=== PATIENT | male | born 1940 | race Caucasian/White ===

== ENCOUNTER → 2018-12-24 08:23 | Outpatient (CLI) | payer MEDICARE, OTHER, SELFPAY ==
[2018-12-24 09:56] LABS: PSA,Total- Diagnostic 9.33 ng/mL (0.0-4.0)
== END ==
PROVIDERS: Family Provider Family Medicine; PCP Family Medicine; Referring Provider Nurse Practitioner Adult Health; Visit Provider Nurse Practitioner Adult Health
DX: R97.20 Elevated prostate specific antigen [PSA] (principal)
CPT/HCPCS: 36415; 84153

== ENCOUNTER → 2019-01-15 08:00 | Outpatient (CLI) | payer MEDICARE, OTHER, SELFPAY ==
--- NOTE | 2019-01-15 | IMM_PTH ---
PATIENT: MIRIAN CARCAMO LOC: [facility] U#:[id number] AGE/SX: 84/M ROOM: RE01/15/[address]: Dr. Anthony Cagle MD : 1940 BED: DIS: SPEC #: [id number] RECD: 01/17/19 10:28 STATUS: BERNARDO REQ #: [id number] JAY: 01/15/19 00:[address]: Anthony Cagle DEPT: IMMUNOHISTOCHEMISTRY RECD BY: Rafael Álvarez ENTERED: 01/17/19 10:30 SP TYPE: IMMUNO OTHR DR: Dr. Low Washington MD Tissues: PROSTATE BIOPSY Procedures: 34BE12 (add) P40 (add) 34BE12 (initial) PHYSICIAN & INSTITUTION [place] [id number] SPECIMEN INFORMATION: Tissue Source: A. Right apex prostate, biopsy, C. Right base prostate, biopsy, D. Left apex prostate, biopsy Clinical Info: R97.20 Specimen Number: [id number] A, C, and D CPT code: 83569, 82244 x5 METHODOLOGY: Deparaffinized sections of prefer/formalin-fixed tissue or PAP/DQ stained slides are incubated with monoclonal/polyclonal antibodies/oligonucleotide probes. Localization is made via biotin free immunoperoxidase method. Appropriate controls are performed and reacted as expected. Results on target cell population are indicated in the following table: RESULTS: ANTIBODY / CLONE RESULT Block A 34BE12 (34BE12) negative P40 (BC28) negative Block C 34BE12 (34BE12) negative P40 (BC28) negative Block D 34BE12 (34BE12) negative P40 (BC28) negative These tests were developed and their performance characteristics determined by [facility]. They may not have been cleared or approved by the U.S. Food and Drug Administration. The FDA has determined that such clearance or approval is not necessary. INTERPRETATION: A. Right prostate apex, needle core biopsy: Adenocarcinoma C. Right prostate base, needle core biopsy: Adenocarcinoma D. Left prostate apex, needle core biopsy: Consistent with atypical small acinar proliferation AM:jose 01/17/19
--- NOTE | 2019-01-15 08:00 | PROSBIL_PTH ---
PATIENT: MIRIAN CARCAMO LOC: [facility] U#:[id number] AGE/SX: 84/M ROOM: RE01/15/[address]: Dr. Anthony Cagle MD : 1940 BED: DIS: SPEC #: [id number] RECD: 01/15/19 17:00 STATUS: BERNARDO LOWELL #: [id number] JAY: 01/15/19 08:[address]: Anthony Cagle DEPT: SURGICAL PATHOLOGY RECD BY: Rafael Álvarez ENTERED: 01/16/19 09:36 SP TYPE: PROST BX BRIAN DR: Dr. Low Washington MD Tissues: A - PROSTATE RIGHT B - PROSTATE RIGHT C - PROSTATE RIGHT D - PROSTATE LEFT E - PROSTATE LEFT F - PROSTATE LEFT Procedures: PROSTATE BX HEADER OPERATION: Prostate biopsy PRE-OP DIAGNOSIS: R97.20 TISSUE SUBMITTED: A-Right apex, B-Right mid, C-Right base, D-Left apex, E-Left mid, F-Left base MICROSCOPIC DIAGNOSIS A. Right prostate, apex, core biopsy: Adenocarcinoma: Ghassan grade: 3+3 (6) Cores involved: 1-2 Tissue involved: less than 1% Greatest tumor length: less than 1 mm B. Right prostate, mid, core biopsy: Mild chronic inflammation and glandular atrophy. C. Right prostate, base, core biopsy: Adenocarcinoma: [place] grade: 3+3 (6) Cores involved: 2 out of 2 Tissue involved: 35% Greatest tumor length: 3 mm Perineural invasion - present, focal D. Left prostate, apex, core biopsy: Atypical small acinar proliferation suspicious for focus of adenocarcinoma. Glandular atrophy and mild chronic inflammation. E. Left prostate, mid, core biopsy: Glandular atrophy and mild chronic inflammation. F. Left prostate, base, core biopsy: Glandular atrophy and mild chronic inflammation. AM:breezy 01/17/19 COMMENT A, C, D: Immunohistochemistry ([id number]) supports the above diagnosis. Case has been reviewed in consultation with Dr. Blancas who concurs with the above diagnosis. IDC:SJ MICROSCOPIC DESCRIPTION Slides are reviewed. GROSS DESCRIPTION A - Received is one container designated prostate, right apex. The specimen consists of two elongated fragments of light ritter-white soft tissue each measuring 0.7 and 1.5 cm in length and 0.1 cm in diameter. The specimen is totally submitted in one cassette. B - Received is one container designated prostate, right mid. The specimen consists of two elongated fragments of light ritter-white soft tissue each measuring 1 and 1.5 cm in length and 0.1 cm in diameter. The specimen is totally submitted in one cassette. C - Received is one container designated prostate, right base. The specimen consists of two elongated fragments of light ritter-white soft tissue each measuring 1.2 cm in length and 0.1 cm in diameter. The specimen is totally submitted in one cassette. D - Received is one container designated prostate, left apex. The specimen consists of two elongated fragments of light ritter-white soft tissue each measuring 1 and 1.8 cm in length and 0.1 cm in diameter. The specimen is totally submitted in one cassette. E - Received is one container designated prostate, left mid. The specimen consists of three elongated fragments of light ritter-white soft tissue each measuring 0.5 to 1.5 cm in length and 0.1 cm in diameter. The specimen is totally submitted in one cassette. F - Received is one container designated prostate, left base. The specimen consists of two elongated fragments of light ritter-white soft tissue each measuring 0.6 and 1 cm in length and 0.1 cm in diameter. The specimen is totally submitted in one cassette. / RAJ:breezy 01/16/19 TC: 0 CPT: G0146 ADDENDUM ADDENDUM ADDENDUM ADDENDUM ADDENDUM ADDENDUM ADDENDUM ADDENDUM 02/12/2019 09:46 ADDENDUM 02/12/2019 09:46 ADDENDUM 02/12/2019 09:46 ADDENDUM 02/12/2019 09:46 ADDENDUM 02/12/2019 09:46 ADDENDUM 04/22/2019 09:50 An order for Oncotype testing was received from Dr. Cagle. This necessitated case review, block and slide selection by pathologist at [facility]. Genomic Prostate Score = 32 Results of the complete Oncotype testing ([facility] report) are viewable in EMR under: Reports - Pathology - Lab Pathology Report, Scanned. This addendum is added to incorporate an outside pathology consultation report. The case was examined at [facility] (#[id number]) and the following diagnosis was rendered. A. Right prostate, apex, core biopsy: Prostatic adenocarcinoma, Ghassan score 3+3=6, involving 1 of 2 cores and less than 1% of the tissue. B. Right prostate, mid, core biopsy: Prostate tissue with no significant pathologic change. C. Right prostate, base, core biopsy: Prostatic adenocarcinoma, [place] score 3+3=6, involving 2 of 2 cores and 20% of the tissue. Perineural invasion. D. Left prostate, apex, core biopsy: Prostatic adenocarcinoma, Ghassan score 3+3=6, involving 1 of 1 core and 1% of the tissue. Perineural invasion. E. Left prostate, mid, core biopsy: Prostate tissue with no significant pathologic change. F. Left prostate, base, core biopsy: Prostate tissue with no significant pathologic change. Please see complete above mentioned consultation report in EMR
== END ==
PROVIDERS: Family Provider Family Medicine; PCP Family Medicine; Referring Provider Urology; Visit Provider Urology
DX: C61 Malignant neoplasm of prostate (principal); N41.1 Chronic prostatitis; N42.89 Other specified disorders of prostate; R97.20 Elevated prostate specific antigen [PSA]
CPT/HCPCS: 88305; 88341; 88342; G0416

== ENCOUNTER → 2019-03-07 10:28 | Outpatient (CLI) | payer MEDICARE, OTHER, SELFPAY | PROVIDERS: Family Provider Family Medicine; PCP Family Medicine; Referring Provider Urology; Visit Provider Urology | DX: C61 Malignant neoplasm of prostate (principal) | CPT/HCPCS: 36415; 84153 ==

== ENCOUNTER → 2019-10-07 12:35 | Outpatient (CLI) | payer MEDICARE, OTHER, SELFPAY ==
[2019-03-12 11:18] VITALS: BMI 27.7
[2019-10-07 13:38] LABS: PSA,Total- Diagnostic 8.84 ng/mL (0.0-4.0)
== END ==
PROVIDERS: PCP Family Medicine
DX: C61 Malignant neoplasm of prostate (principal)
CPT/HCPCS: 36415; 84153

== ENCOUNTER → 2020-01-29 08:54 | Outpatient (CLI) | payer MEDICARE, OTHER, SELFPAY ==
[2019-03-12 11:18] VITALS: BMI 27.7
[2020-01-29 10:04] LABS: PSA,Total- Diagnostic 8.56 ng/mL (0.0-4.0)
== END ==
PROVIDERS: PCP Family Medicine; Referring Provider Student in an Organized Health Care Education/Training Program; Visit Provider Student in an Organized Health Care Education/Training Program
DX: C61 Malignant neoplasm of prostate (principal)
CPT/HCPCS: 36415; 84153

== ENCOUNTER → 2020-09-14 11:05 | Outpatient (CLI) | payer MEDICARE, OTHER, SELFPAY ==
[2019-03-12 11:18] VITALS: BMI 27.7
[2020-09-14 12:23] LABS: AST(SGOT) 19 U/L (15-37); Alanine Aminotransfer ALT/SGPT 22 U/L (16-61); Albumin, Serum 3.9 g/dL (3.2-5.0); Alkaline Phosphatase 72 U/L (45-117); Bilirubin, Direct 0.24 mg/dL (0.00-0.30); Globulin 3.4 g/dL (2.2-4.2); PSA,Total- Diagnostic 9.89 ng/mL (0.0-4.0); Protein, Total 7.3 g/dL (6.4-8.2)
== END ==
PROVIDERS: PCP Family Medicine
DX: C61 Malignant neoplasm of prostate (principal); E80.6 Other disorders of bilirubin metabolism
CPT/HCPCS: 36415; 80076; 84153

== ENCOUNTER → 2021-02-15 08:32 | Outpatient (CLI) | payer MEDICARE, OTHER, SELFPAY ==
[2019-03-12 11:18] VITALS: BMI 27.7
== END ==
PROVIDERS: PCP Family Medicine
DX: C61 Malignant neoplasm of prostate (principal)
CPT/HCPCS: 36415; 84153

== ENCOUNTER → 2021-09-28 | Outpatient (CLI) | payer MEDICARE, OTHER, SELFPAY ==
[2019-03-12 11:18] VITALS: BMI 27.7
== END | disposition home or self-care (01) ==
LOC: LAB 13:42
PROVIDERS: PCP Family Medicine; Referring Provider Urology; Visit Provider Urology
DX: C61 Malignant neoplasm of prostate (principal)
CPT/HCPCS: 36415; 84153

== ENCOUNTER → 2021-10-07 | Outpatient (CLI) | payer MEDICARE, OTHER, SELFPAY ==
[2019-03-12 11:18] VITALS: BMI 27.7
--- NOTE | 2021-10-07 | PROSBIL_PTH ---
PATIENT: MIRIAN CARCAMO LOC: [facility] U#:[id number] AGE/SX: 80/M ROOM: RE10/07/[address]: Dr. Anthony Cagle MD : 1940 BED: DIS: 10/07/2021 SPEC #: [id number] RECD: 10/07/21 16:28 STATUS: BERNARDO ETIENNE #: [id number] JAY: 10/07/21 00:[address]: Anthony Cagle DEPT: SURGICAL PATHOLOGY RECD BY: Rafael Álvarez ENTERED: 10/08/21 08:54 SP TYPE: PROST BX BRIAN DR: Dr. Alejandro Mullen MD Tissues: A - PROSTATE RIGHT B - PROSTATE RIGHT C - PROSTATE RIGHT D - PROSTATE LEFT E - PROSTATE LEFT F - PROSTATE LEFT Procedures: PROSTATE BX HEADER OPERATION: Prostate biopsy PRE-OP DIAGNOSIS: Elevated PSA TISSUE SUBMITTED: A - Right apex, B - Right mid, C - Right base, D - Left apex, E - Left mid, F - Left base MICROSCOPIC DIAGNOSIS A. Right prostate, apex, core biopsy: Prostatic tissue, negative for malignancy. B. Right prostate, mid, core biopsy: Prostatic tissue, negative for malignancy. C. Right prostate, base, core biopsy: Prostatic adenocarcinoma. [place] grade: 3+3=6 Number of cores involved: 1/1 Proportion of tissue involved: ~40% Perineural invasion: Not identified. Greatest tumor length: 0.4 cm D. Left prostate, apex, core biopsy: Prostatic tissue, negative for malignancy. E. Left prostate, mid, core biopsy: Prostatic adenocarcinoma. Ghsasan grade: 3+3=6 Number of cores involved: 1/1 Proportion of tissue involved: ~15% Perineural invasion: Not identified. Greatest tumor length: 2 mm See comment. F. Left prostate, base, core biopsy: Prostatic tissue, negative for malignancy. SJ:kate 10/11/2021 COMMENT E. Immunohistochemistry ([id number]) supports the above diagnosis. his case has been reviewed in consultation with Dr. Azevedo who concurs with the above diagnosis. MICROSCOPIC DESCRIPTION Slides are reviewed. GROSS DESCRIPTION A - Received is one container designated prostate, right apex. The specimen consists of one elongated fragment of light ritter-white soft tissue measuring 1.5 cm in length and 0.1 cm in diameter. The specimen is totally submitted in one cassette. B - Received is one container designated prostate, right mid. The specimen consists of one elongated fragments of light ritter-white soft tissue measuring 1 cm in length and 0.1 cm in diameter. The specimen is totally submitted in one cassette. C - Received is one container designated prostate, right base. The specimen consists of one elongated fragment of light ritter-white soft tissue measuring 1.5 cm in length and 0.1 cm in diameter. The specimen is totally submitted in one cassette. D - Received is one container designated prostate, left apex. The specimen consists of one elongated fragment of light ritter-white soft tissue measuring 1 cm in length and 0.1 cm in diameter. The specimen is totally submitted in one cassette. E - Received is one container designated prostate, left mid. The specimen consists of one elongated fragment of light ritter-white soft tissue measuring 1 cm in length and 0.1 cm in diameter. The specimen is totally submitted in one cassette. F - Received is one container designated prostate, left base. The specimen consists of one elongated fragment of light ritter-white soft tissue measuring 2 cm in length and 0.1 cm in diameter. The specimen is totally submitted in one cassette. / AM:kate 10/08/2021 TC:0 CPT: G0146
--- NOTE | 2021-10-07 | IMM_PTH ---
PATIENT: MIRIAN CARCAMO LOC: [facility] U#:[id number] AGE/SX: 80/M ROOM: RE10/07/[address]: Dr. Anthony Cagle MD : 1940 BED: DIS: 10/07/2021 SPEC #: [id number] RECD: 10/11/21 14:04 STATUS: BERNARDO REAriadna #: [id number] JAY: 10/07/21 00:[address]: Anthony Cagle DEPT: IMMUNOHISTOCHEMISTRY RECD BY: Carmen Liz ENTERED: 10/11/21 14:04 SP TYPE: IMMUNO OTHR DR: Dr. Alejandro Mullen MD Tissues: E - PROSTATE LEFT Procedures: P40 (add) 34BE12 (initial) PHYSICIAN & INSTITUTION [place] [id number] SPECIMEN INFORMATION: Tissue Source: E - Left prostate, mid, core biopsy Clinical Info: Elevated PSA Specimen Number: [id number] CPT code: 17973, 44654 METHODOLOGY: Deparaffinized sections of prefer/formalin-fixed tissue or PAP/DQ stained slides are incubated with monoclonal/polyclonal antibodies/oligonucleotide probes. Localization is made via biotin free immunoperoxidase method. Appropriate controls are performed and reacted as expected. Results on target cell population are indicated in the following table: RESULTS: ANTIBODY / CLONE RESULT Block E P40 (BC28) negative 34BE12 (34BE12) negative These tests were developed and their performance characteristics determined by [facility]. They may not have been cleared or approved by the U.S. Food and Drug Administration. The FDA has determined that such clearance or approval is not necessary. The above immunohistochemical/dualISH markers are ordered and reviewed by the Pathologist. INTERPRETATION: James Left prostate, mid, core biopsy: Adenocarcinoma. SJ:kate 10/12/2021
== END | disposition home or self-care (01) ==
LOC: LABSPEC 16:52
PROVIDERS: PCP Family Medicine; Visit Provider Urology
DX: C61 Malignant neoplasm of prostate (principal)
CPT/HCPCS: 88305; 88341; 88342; G0416